=== PATIENT | female | born 1955 | race African-American/Black ===

== ENCOUNTER 2017-01-06 17:42 | Emergency (ER) | payer MEDICARE, OTHER ==
[~2017-01-06] VITALS: Ht 167.6 cm; Wt 100.0 kg
[~2017-01-06 17:42] MED LIST: MIRA33504 PO
[2017-01-06 17:44] VITALS: BP 130/72; PULSE 76; RESP 20; TEMP 98.3; O2SAT 99
--- NOTE | 2017-01-06 17:51 | PD ---
Physical Exam Date Seen by Provider: Jan 06, 2017 Time Seen by Provider: 17:50 Narrative 61 yo female here for evaluation of possible allergic reaction to hair dye. Going on since today. history of same prior. Had good results with benadryl and "a shot". Has swelling to face and scalp. Itchy. No pain. No SOB. Stable and in no acute distress at triage. Vitals are stable. Awaiting bed placement. Data Data Last Documented VS Vital Signs Date Time Temp Pulse Resp B/P Pulse Ox O2 Delivery O2 Flow Rate FiO2 01/06/17 17:44 98.3 76 20 130/72 99 Room Air [facility] Medical Record Reviewed: Yes Supervised Visit with GLORIA: No Dudley Delgadillo Jan 06, 2017 17:51
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
[2017-01-06] MEDS ORDERED: DEXAMETHASONE SOD PHOS 20 MG/5 ML VIAL IM ONE (20:15)
[2017-01-06] MEDS ORDERED: diphenhydrAMINE HCL 50 MG/ML VIAL IM ONE (20:15)
[2017-01-06] MEDS ORDERED: DILT90TA PO (20:21)
[2017-01-06] MEDS ORDERED: LORA-373 PO (20:21)
[2017-01-06] MEDS ORDERED: HYDR-3516 PO (20:21)
[2017-01-06] MEDS ORDERED: NOVOLOGP2 SQ (20:21)
[2017-01-06] MEDS ORDERED: DOXA1TAB36 PO (20:21)
[2017-01-06] MEDS ORDERED: CARV25TA PO (20:21)
[2017-01-06] MEDS ORDERED: LACT10SO PO (20:21)
[2017-01-06 21:28] VITALS: BP 126/70; PULSE 80; RESP 16; O2SAT 98
[2017-01-07] MEDS ORDERED: ZANT300T PO (16:09)
[2017-01-07] MEDS ORDERED: PRED20 PO (16:09)
[2017-01-07] MEDS ORDERED: CETI-1 PO (16:09)
[2017-01-14] MEDS ORDERED: DOXA1TAB36 PO (12:25)
[2017-01-14] MEDS ORDERED: DILT90TA PO (12:25)
[2017-01-14] MEDS ORDERED: FLUT1SPR5 EACH NARE (12:25)
[2017-01-14] MEDS ORDERED: ZANT300T PO (12:25)
[2017-01-14] MEDS ORDERED: EASY1MIS7 SQ (12:25)
[2017-01-14] MEDS ORDERED: CARV25TA PO (12:25)
[2017-01-14] MEDS ORDERED: NOVOLOGP2 SQ (12:25)
[2017-01-14] MEDS ORDERED: CETI-1 PO (12:25)
[2017-01-14] MEDS ORDERED: ALCO1PAD (12:25)
[2017-01-14] MEDS ORDERED: BLOOD GLUCOSE M1 KIT (12:25)
[2017-01-15] MEDS ORDERED: BLOOD GLUCOSE T1 TES (13:13)
[2017-01-15] MEDS ORDERED: LANCETS1 MI1 (13:13)
== END 2017-01-06 21:36 | disposition home or self-care (01) ==
LOC: NEPC 17:42
DX: T65.6X1A Toxic effect of paints and dyes, not elsewhere classified, accidental (unintentional), initial encounter (principal); L23.4 Allergic contact dermatitis due to dyes; K59.00 Constipation, unspecified; M13.80 Other specified arthritis, unspecified site; I50.9 Heart failure, unspecified; E11.9 Type 2 diabetes mellitus without complications; I10 Essential (primary) hypertension; I69.951 Hemiplegia and hemiparesis following unspecified cerebrovascular disease affecting right dominant side; Z79.4 Long term (current) use of insulin
CPT/HCPCS: 96372; 99284; J1100; J1200

== ENCOUNTER 2017-01-07 13:48 | Emergency (ER) | payer MEDICARE, OTHER ==
[~2017-01-07 13:48] MED LIST changes: +CARV25TA PO; +DILT90TA PO; +DOXA1TAB36 PO; +HYDR-3516 PO; +LACT10SO PO; +LORA-373 PO; -MIRA33504 PO; +NOVOLOGP2 SQ
[2017-01-07 13:50] VITALS: BP 149/70; PULSE 59; RESP 16; TEMP 98.5; O2SAT 100
--- NOTE | 2017-01-07 14:30 | PD ---
Physical Exam Time Seen by Provider: 14:28 Narrative 61 y/o female with possible allergic rxn to hair dye, seen here yesterday for this issue but it persists. Vital signs reviewed. Seen at triage desk. Awaiting bed placement. Data Data Last Documented VS Vital Signs Date Time Temp Pulse Resp B/P Pulse Ox O2 Delivery O2 Flow Rate FiO2 01/07/17 13:50 98.5 59 16 149/70 100 Room Air [facility] Medical Record Reviewed: Yes Supervised Visit with GLORIA: Jesús Costa Jan 07, 2017 14:30
[2017-01-07] MEDS ORDERED: DEXAMETHASONE SOD PHOS 4 MG/ML VIAL IM ONE (16:00)
[2017-01-07] MEDS ORDERED: diphenhydrAMINE HCL 50 MG/ML VIAL IM ONE (16:00)
[2017-01-07] MEDS ORDERED: PRED20 PO (16:09)
[2017-01-07] MEDS ORDERED: ZANT300T PO (16:09)
[2017-01-07] MEDS ORDERED: CETI-1 PO (16:09)
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
[2017-01-14] MEDS ORDERED: EASY1MIS7 SQ (12:25)
[2017-01-14] MEDS ORDERED: ALCO1PAD (12:25)
[2017-01-14] MEDS ORDERED: FLUT1SPR5 EACH NARE (12:25)
[2017-01-14] MEDS ORDERED: ZANT300T PO (12:25)
[2017-01-14] MEDS ORDERED: DILT90TA PO (12:25)
[2017-01-14] MEDS ORDERED: NOVOLOGP2 SQ (12:25)
[2017-01-14] MEDS ORDERED: DOXA1TAB36 PO (12:25)
[2017-01-14] MEDS ORDERED: CETI-1 PO (12:25)
[2017-01-14] MEDS ORDERED: CARV25TA PO (12:25)
[2017-01-14] MEDS ORDERED: BLOOD GLUCOSE M1 KIT (12:25)
[2017-01-15] MEDS ORDERED: LANCETS1 MI1 (13:13)
[2017-01-15] MEDS ORDERED: BLOOD GLUCOSE T1 TES (13:13)
== END 2017-01-07 16:31 | disposition home or self-care (01) ==
LOC: NEPD 13:48
DX: T78.40XA Allergy, unspecified, initial encounter (principal); R60.9 Edema, unspecified; E11.9 Type 2 diabetes mellitus without complications; M13.80 Other specified arthritis, unspecified site; I50.9 Heart failure, unspecified; I10 Essential (primary) hypertension; I69.90 Unspecified sequelae of unspecified cerebrovascular disease; Z79.4 Long term (current) use of insulin; Z79.899 Other long term (current) drug therapy
CPT/HCPCS: 96372; 99284; J1100; J1200

== ENCOUNTER 2017-01-22 13:02 | Inpatient (IN) | payer MEDICARE, OTHER ==
[~2017-01-22] VITALS: Ht 167.6 cm; Wt 92.4 kg
[~2017-01-22 13:02] MED LIST changes: +ALCO1PAD; +BLOOD GLUCOSE M1 KIT; +BLOOD GLUCOSE T1 TES; +CETI-1 PO; +EASY1MIS7 SQ; +FLUT1SPR5 EACH NARE; +LANCETS1 MI1; +ZANT300T PO
[2017-01-22 13:05] VITALS: BP 171/77; PULSE 60; RESP 16; TEMP 97.8; O2SAT 97
[2017-01-22 14:00] VITALS: BP 167/74; PULSE 60; RESP 16; TEMP 97.8; O2SAT 97
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
[2017-01-22] MEDS ORDERED: SENN8.6T8 PO (14:12)
[2017-01-22] MEDS ORDERED: NOVOLOGP2 SQ (14:12)
[2017-01-22 14:31] LABS: AUTOMATED NEUTROPHIL # 4.1 TH/MM3 (1.8-7.7); BASOPHIL # 0.1 TH/MM3 (0-0.2); BASOPHIL % 0.7 % (0.0-2.0); EOSINOPHIL # 0.3 TH/MM3 (0-0.4); EOSINOPHIL % 3.4 % (0.0-4.0); HEMATOCRIT 32.8 % (35.0-46.0); HEMO FLAGS DIFF FINAL; LYMPH % 36.4 % (9.0-44.0); LYMPHOCYTE # 2.8 TH/MM3 (1.0-4.8); MEAN CELL VOLUME 87.1 FL (80.0-100.0); MEAN CORPUSCULAR HEMOGLOBIN 28.5 PG (27.0-34.0); MEAN CORPUSCULAR HGB CONC 32.8 % (32.0-36.0); MONO % 7.1 % (0.0-8.0); NEUT % 52.4 % (16.0-70.0); PLATELET COUNT 237 TH/MM3 (150-450); RED BLOOD COUNT 3.77 MIL/MM3 (4.00-5.30); RED CELL DISTRIBUTION WIDTH 13.6 % (11.6-17.2); WHITE BLOOD COUNT 7.8 TH/MM3 (4.0-11.0)
[2017-01-22 14:52] LABS: ALT (GPT) 25 U/L (10-53); ANION GAP 6 MEQ/L (5-15); BICARBONATE 27.2 MEQ/L (21.0-32.0); BLOOD UREA NITROGEN 18 MG/DL (7-18); CHLORIDE 111 MEQ/L (98-107); GLOMERULAR FILTRATION RATE 76 ML/MIN (>89); POTASSIUM 4.2 MEQ/L (3.5-5.1); SODIUM (NA) 144 MEQ/L (136-145)
[2017-01-22 14:59] LABS: ALKALINE PHOSPHATASE 89 U/L (45-117); AST (GOT) 19 U/L (15-37); TOTAL BILIRUBIN ADULT 0.2 MG/DL (0.2-1.0)
[2017-01-22 17:37] LABS: BACTERIA, URINE MANY /hpf; BLOOD, URINE NEG (NEG); COMMENT (UR) CULTURE INDICATED; CULTURE IF INDICATED CULTURE INDICATED; GLUCOSE,URINE NEG (NEG); KETONE, URINE NEG (NEG); MUCUS URINE FEW /lpf (OCC); NITRITE,URINE NEG (NEG); PH, URINE 5.5 (5.0-8.5); SQUAMOUS EPITHELIAL CELL URINE 1 /hpf (0-5); URINE COLOR YELLOW (YELLW/STRAW)
[2017-01-22] MEDS ORDERED: SODIUM CHLORIDE 0.9% FLUSH 10 ML FLUSH IVF PRN (17:45)
[2017-01-22] MEDS ORDERED: CEFEPIME INJ 2,000 MG in SODIUM CHLORIDE 0.9% INJ 100 ML IV ONE (17:45)
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
[2017-01-22] MEDS ORDERED: DEXTROSE 50% IN WATER 50 ML VIAL(D50) IV PRN (18:15)
[2017-01-22] MEDS ORDERED: ONDANSETRON HCL 4 MG/2 ML VIAL IVP PRN (18:15)
[2017-01-22] MEDS ORDERED: RESP: ALBUTEROL 2.5 MG/IPRATROPIUM 0.5 MG NEB (PRN) NEB (18:15)
[2017-01-22] MEDS ORDERED: MAGNESIUM HYDROXIDE SUSP 30 ML CUP PO PRN (18:15)
[2017-01-22] MEDS ORDERED: SODIUM CHLORIDE 0.9% FLUSH 10 ML FLUSH IV FLUSH PRN (18:15)
[2017-01-22] MEDS ORDERED: ACETAMINOPHEN 325 MG TAB PO PRN ×2 (18:15)
[2017-01-22] MEDS ORDERED: GLUCAGON 1 MG/ML VIAL OTHER PRN (18:15)
[2017-01-22] MEDS ORDERED: NALOXONE HCL 0.4 MG/ML AMP IV PRN (18:15)
[2017-01-22] MEDS: SODIUM CHLOR 0.9% 1000 ML INJ 1,000 ML IV SCH (18:44)
[2017-01-22 20:40] VITALS: BP 165/80; PULSE 67; RESP 16; TEMP 97.8; O2SAT 99
[2017-01-22] MEDS: LACTOBACILLUS ACIDOPHILUS TAB PO SCH (20:48)
[2017-01-22] MEDS: CARVEDILOL 12.5 MG TAB PO SCH (20:48)
[2017-01-22] MEDS: INSULIN ASPART SUPPLEMENTAL SCALE SQ SCH (20:49)
[2017-01-22] MEDS: SODIUM CHLORIDE 0.9% FLUSH 10 ML FLUSH IV FLUSH SCH (20:49)
[2017-01-23] VITALS: BP 152/67; PULSE 60; RESP 16; TEMP 98.2; O2SAT 97
[2017-01-23] MEDS: CEFEPIME INJ 2,000 MG in SODIUM CHLORIDE 0.9% INJ 100 ML IV SCH ×3 (01:39→18:33)
[2017-01-23 03:45] VITALS: BP 163/74; PULSE 79; RESP 16; TEMP 98; O2SAT 98
[2017-01-23] MEDS: INSULIN ASPART SUPPLEMENTAL SCALE SQ SCH ×4 (06:21→21:00)
[2017-01-23 07:28] LABS: AUTOMATED NEUTROPHIL # 3.3 TH/MM3 (1.8-7.7); BASOPHIL # 0.1 TH/MM3 (0-0.2); EOSINOPHIL # 0.2 TH/MM3 (0-0.4); EOSINOPHIL % 3.5 % (0.0-4.0); HEMATOCRIT 29.7 % (35.0-46.0); HEMO FLAGS DIFF FINAL; LYMPH % 36.4 % (9.0-44.0); LYMPHOCYTE # 2.4 TH/MM3 (1.0-4.8); MEAN CELL VOLUME 85.5 FL (80.0-100.0); MEAN CORPUSCULAR HEMOGLOBIN 28.8 PG (27.0-34.0); MEAN CORPUSCULAR HGB CONC 33.7 % (32.0-36.0); MONO % 8.2 % (0.0-8.0); NEUT % 50.9 % (16.0-70.0); PLATELET COUNT 198 TH/MM3 (150-450); RED BLOOD COUNT 3.47 MIL/MM3 (4.00-5.30); RED CELL DISTRIBUTION WIDTH 13.2 % (11.6-17.2); WHITE BLOOD COUNT 6.6 TH/MM3 (4.0-11.0)
[2017-01-23 07:31] LABS: ALT (GPT) 21 U/L (10-53); ANION GAP 6 MEQ/L (5-15); AST (GOT) 14 U/L (15-37); BICARBONATE 27.2 MEQ/L (21.0-32.0); BLOOD UREA NITROGEN 18 MG/DL (7-18); CHLORIDE 111 MEQ/L (98-107); GLOMERULAR FILTRATION RATE 89 ML/MIN (>89); POTASSIUM 4.1 MEQ/L (3.5-5.1); SODIUM (NA) 144 MEQ/L (136-145)
[2017-01-23 07:33] LABS: ALKALINE PHOSPHATASE 71 U/L (45-117); HDL CHOLESTEROL 45.7 MG/DL (40.0-60.0); LDL CHOLESTEROL 56 MG/DL (0-99); TOTAL BILIRUBIN ADULT 0.4 MG/DL (0.2-1.0)
[2017-01-23 08:00] VITALS: BP 182/88; PULSE 73; PULSE 75; RESP 20; TEMP 97.5; O2SAT 98
[2017-01-23] MEDS: SODIUM CHLOR 0.9% 1000 ML INJ 1,000 ML IV SCH (08:30)
[2017-01-23] MEDS ORDERED: INFLUENZA VIRUS VACCINE (QUADRIVALENT) 0.5 ML SYR IM ONE (09:00)
--- NOTE | 2017-01-23 09:38 | HHI.PR ---
Subjective Remarks Follow up UTI 01/23/17-patient seen and examined; Afebrile and no acute event overnight Objective Vitals Vital Signs Date Time Temp Pulse Resp B/P Pulse Ox O2 Delivery O2 Flow Rate FiO2 01/23/17 03:45 98.0 79 16 163/74 98 01/23/17 00:00 98.2 60 16 152/67 97 01/22/17 20:40 97.8 67 16 165/80 99 01/22/17 14:00 97.8 60 16 167/74 97 Room Air 01/22/17 13:46 Room Air 01/22/17 13:05 97.8 60 16 171/77 97 Room Air I/O 01/22/17 01/22/17 01/22/17 01/23/17 01/23/17 01/23/17 07:00 15:00 23:00 07:00 15:00 23:00 Intake Total 600 ml 600 ml Balance 600 ml 600 ml Intake Oral 600 ml 600 ml # Voids 2 Result Diagram: 01/23/1712 01/23/17 0612 Objective Remarks GENERAL: NAD SKIN: Warm and dry. HEAD: Normocephalic. EYES: No scleral icterus. No injection or drainage. NECK: Supple, trachea midline. No JVD or lymphadenopathy. CARDIOVASCULAR: Regular rate and rhythm with II/ LADI RESPIRATORY: Breath sounds equal bilaterally. No accessory muscle use. GASTROINTESTINAL: Abdomen soft, non-tender, nondistended. MUSCULOSKELETAL: No cyanosis, or edema. BACK: Nontender without obvious deformity. No CVA tenderness. A/P Problem List: (1) Urinary tract infection ICD Code: N39.0 Status: Acute (2) Hypertension ICD Code: I10 Status: Chronic (3) Diabetes mellitus type 2 ICD Code: 250.00 (4) CVA (cerebral vascular accident) ICD Code: I63.9 Status: Acute Assessment and Plan 61-year-old female with History of Klebsiella UTI Abnormal UA Status post cefepime IV 1 in ED, continue with antibiotics pending urine and blood cultures Diabetes type 2 continue insulin medium sliding scale and fingerstick blood glucose monitoring A1c pending Hypertension continue outpatient medications including Coreg, Cardizem History of CVA PT consult Check lipid profile Anemia of chronic disease H&H stable, continue to monitor DVT prophylaxis: Bilateral SCDs Problem Qualifiers (1) Urinary tract infection: Qualified Code: N30.00 - Acute cystitis without hematuria Jose Russell MD Jan 23, 2017 09:38
[2017-01-23] MEDS: SODIUM CHLORIDE 0.9% FLUSH 10 ML FLUSH IV FLUSH SCH ×2 (09:44→21:00)
[2017-01-23] MEDS: DILTIAZEM HCL 90 MG TAB PO SCH ×3 (09:44→18:33)
[2017-01-23] MEDS: DOXAZOSIN MESYLATE 1 MG TAB PO SCH (09:44)
[2017-01-23] MEDS: LACTOBACILLUS ACIDOPHILUS TAB PO SCH ×2 (09:44→21:02)
[2017-01-23] MEDS: CARVEDILOL 12.5 MG TAB PO SCH ×2 (09:44→21:02)
[2017-01-23 12:00] VITALS: BP 165/81; PULSE 58; RESP 18; TEMP 98.1; O2SAT 98
[2017-01-23 13:19] LABS: HEMOGLOBIN A1a 0.9 %; HEMOGLOBIN A1b 1.7 %; HEMOGLOBIN Ao 84.4 %; HEMOGLOBIN LA1C 1.9 %; HEMOGLOBIN P3 4.1 %
[2017-01-23 16:00] VITALS: BP 149/73; PULSE 56; RESP 18; TEMP 97.5; O2SAT 99
[2017-01-23 20:00] VITALS: BP 136/74; PULSE 68; RESP 20; TEMP 99.7; O2SAT 98
[2017-01-24] MEDS: CEFEPIME INJ 2,000 MG in SODIUM CHLORIDE 0.9% INJ 100 ML IV SCH ×3 (00:30→18:20)
[2017-01-24 00:50] VITALS: BP 118/58; PULSE 63; RESP 18; TEMP 98.7; O2SAT 100
[2017-01-24 04:00] VITALS: BP 143/65; PULSE 65; RESP 18; TEMP 98.6; O2SAT 98
[2017-01-24] MEDS: INSULIN ASPART SUPPLEMENTAL SCALE SQ SCH ×4 (06:28→20:45)
[2017-01-24 08:00] VITALS: BP 161/74; PULSE 67; RESP 20; TEMP 98.5; O2SAT 98
[2017-01-24] MEDS: SODIUM CHLOR 0.9% 1000 ML INJ 1,000 ML IV SCH (08:30)
[2017-01-24] MEDS: SODIUM CHLORIDE 0.9% FLUSH 10 ML FLUSH IV FLUSH SCH ×2 (09:00→21:04)
[2017-01-24] MEDS: CARVEDILOL 12.5 MG TAB PO SCH ×2 (09:39→20:50)
[2017-01-24] MEDS: LACTOBACILLUS ACIDOPHILUS TAB PO SCH ×2 (09:39→20:50)
[2017-01-24] MEDS: DILTIAZEM HCL 90 MG TAB PO SCH ×3 (09:39→18:22)
[2017-01-24] MEDS: DOXAZOSIN MESYLATE 1 MG TAB PO SCH (09:39)
[2017-01-24 12:00] VITALS: BP 143/81; PULSE 65; RESP 20; TEMP 97.8; O2SAT 98
--- NOTE | 2017-01-24 12:55 | HHI.PR ---
Subjective Remarks Follow up UTI 01/23/17-patient seen and examined; Afebrile and no acute event overnight 01/24/17-patient seen and examined, stable, afebrile, denies any symptoms of dysuria. Objective Vitals Vital Signs Date Time Temp Pulse Resp B/P Pulse Ox O2 Delivery O2 Flow Rate FiO2 01/24/17 08:00 98.5 67 20 161/74 98 01/24/17 04:00 98.6 65 18 143/65 98 01/24/17 00:50 98.7 63 18 118/58 100 01/23/17 20:00 99.7 68 20 136/74 98 01/23/17 16:00 97.5 56 18 149/73 99 I/O 01/23/17 01/23/17 01/23/17 01/24/17 01/24/17 01/24/17 06:59 14:59 22:59 06:59 14:59 22:59 Intake Total 600 ml 1320 ml 182 ml 392 ml Output Total 500 ml 700 ml Balance 600 ml 820 ml -518 ml 392 ml Intake Oral 600 ml 1320 ml IV Total 182 ml 392 ml Output Urine Total 500 ml 700 ml # Voids 2 2 # Bowel Movements 0 0 0 Result Diagram: 01/23/1761101/23/17611 Objective Remarks GENERAL: NAD SKIN: Warm and dry. HEAD: Normocephalic. EYES: No scleral icterus. No injection or drainage. NECK: Supple, trachea midline. No JVD or lymphadenopathy. CARDIOVASCULAR: Regular rate and rhythm with II/ LADI RESPIRATORY: Breath sounds equal bilaterally. No accessory muscle use. GASTROINTESTINAL: Abdomen soft, non-tender, nondistended. MUSCULOSKELETAL: No cyanosis, or edema. BACK: Nontender without obvious deformity. No CVA tenderness. A/P Problem List: (1) Urinary tract infection ICD Code: N39.0 Status: Acute (2) Hypertension ICD Code: I10 Status: Chronic (3) Diabetes mellitus type 2 ICD Code: 250.00 (4) CVA (cerebral vascular accident) ICD Code: I63.9 Status: Acute Assessment and Plan 61-year-old female with History of Klebsiella UTI Urine culture positive for klebsiella pneumonia ESBL Status post cefepime IV 1 in ED, continue with antibiotics Consult infectious disease specialist Diabetes type 2 continue insulin medium sliding scale and fingerstick blood glucose monitoring A1c 6.5 Hypertension continue outpatient medications including Coreg, Cardizem History of CVA PT consult LDL 56 Anemia of chronic disease H&H stable, continue to monitor DVT prophylaxis: Bilateral SCDs Problem Qualifiers (1) Urinary tract infection: Qualified Code: N30.00 - Acute cystitis without hematuria Jose Russell MD Jan 24, 2017 12:55
[2017-01-24 16:00] VITALS: BP 120/60; PULSE 64; RESP 20; TEMP 97.7; O2SAT 100
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
[2017-01-24] MEDS ORDERED: ASP: Path resistant to other antimicrobials, culture proven PRN (16:30)
[2017-01-24] MEDS ORDERED: MISCELLANEOUS PHARMACY INFORMATION XX PRN (16:30)
[2017-01-24 19:51] VITALS: BP 141/69; PULSE 63; RESP 18; TEMP 98.4; O2SAT 98
[2017-01-24] MEDS: ERTAPENEM INJ 1,000 MG in SODIUM CHLORIDE 0.9% INJ 100 ML IV SCH (21:05)
--- NOTE | 2017-01-24 22:22 | RADRPT ---
EXAM DATE/TIME: 01/24/2017 21:41 [facility] COMPARISON: No previous studies available for comparison. INDICATIONS : Hydronephrosis. MEDICAL HISTORY : . Congestive heart failure. Hypertension. Cerebrovascular accident. Seizures. Head trauma. C hroinic kidney disease. Arthritis. Osteoporosis. Diabetes. Chronic back pain. MDRO. SURGICAL HISTORY : Tubal ligation. section. PEG tube. ENCOUNTER: Initial ACUITY: 1 day PAIN SCORE: 0/10 LOCATION: Bilateral flank MEASUREMENTS: RIGHT KIDNEY: 10.4 x 4.7 x 4.7 cm LEFT KIDNEY: 10.4 x 5.2 x 5.9 cm FINDINGS: RIGHT KIDNEY: Renal cortex is normal in thickness and echotexture. No hydronephrosis, stone, or mass. LEFT KIDNEY: Renal cortex is normal in thickness and echotexture. No hydronephrosis, stone, or mass. BLADDER: Partially distended. The margins. CONCLUSION: No evidence of hydronephrosis on either side. Skinny Sanchez MD on January 24, 2017 at 22:19 Board Certified Radiologist. This report was verified electronically.
[2017-01-25] VITALS: BP 148/65; PULSE 62; RESP 18; TEMP 97.9; O2SAT 99
[2017-01-25] MEDS: CEFEPIME INJ 2,000 MG in SODIUM CHLORIDE 0.9% INJ 100 ML IV SCH ×2 (00:56→10:00)
[2017-01-25 04:00] VITALS: BP 132/88; PULSE 63; RESP 19; TEMP 97.8; O2SAT 98
[2017-01-25] MEDS: INSULIN ASPART SUPPLEMENTAL SCALE SQ SCH ×3 (05:47→16:00)
[2017-01-25 08:00] VITALS: BP 159/75; PULSE 56; RESP 18; TEMP 97.9; O2SAT 98
[2017-01-25] MEDS ORDERED: INVA1INJ IV (08:08)
[2017-01-25] MEDS ORDERED: SOLU250I IV PUSH (08:08)
[2017-01-25] MEDS ORDERED: EPIN1INJ21 IV PUSH (08:08)
[2017-01-25] MEDS ORDERED: EPIN1INJ21 SQ (08:08)
--- NOTE | 2017-01-25 08:11 | HHI.FF ---
cc: Jessica Joe 3RD MATE Infusion Therapy Location of Infusion Therapy: Home [facility] IV Infusion Order Patient Information Appointment Date: Jan 25, 2017 Patient Weight 92.4 kg Diagnosis: Diagnosis ESBL Kleb pneumo UTI Coded Allergies: Egg Allergy (Verified Allergy, Unknown, 01/22/17) MRI PRECAUTION (Verified Adverse Reaction, Severe, BULLET IN FRONTAL LOBE , 01/22/17) BULLET CONFIRMED BY DR EVANS, 02/10/15 *MDRO Multi-Drug Resistant Organism (Verified Adverse Reaction, Unknown, ) ESBL+ (urine-04/09/16) Administer Medication Ertapenem 1 gram IV q 24 hours Start Treatment: Jan 25, 2017 Stop Treatment: Jan 31, 2017 Additional Information Venous access: Other (Midline) Additional Instructions [x] Peripheral flush and dressing changes per protocol [x] 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 [] May leave port accessed during therapy. [] May leave peripheral site accessed for duration of therapy. [x] If patient has SOB or respiratory distress, check oxygen saturation. If less than 90% or clinical signs of respiratory distress, administer oxygen at 2 L/min. via nasal cannula and notify physician. [x] Anaphylaxis/Reaction orders: * Stop infusion. * Keep IV line open with saline flush. * Notify physician. * Monitor vital signs every 15 minutes until symptoms resolve. * Check Oxygen saturation; Oxygen at 2 L/min. via nasal cannula if less than 90% or clinical signs of respiratory distress. * Administer diphenhydramine (Benadryl) 25 mg IV STAT, (unless patient has received as pre-med). May repeat once, if necessary. * Solu-Cortef 250 mg IVP over 30-60 seconds, use 100 mg vials for each dissolution. * Epinephrine (1mg/1 ml) 0.3 mg subcutaneously or IVP now with any signs of respiratory distress. * Check with physician for new additional pre-med orders if patient is re- challenged or re-treated. [x] May remove PICC line when treatment complete, after confirming with Physician. [x] If the patient is admitted to the hospital, the ED, or transferred via [facility] , complete transfer form including medication reconciliation order sheet. Laboratory Tests Additional Information After completion of infusions if patient continues to do well ok to remove Midline or else call Paz Barrera MD Jan 25, 2017 08:11
[2017-01-25] MEDS: SODIUM CHLORIDE 0.9% FLUSH 10 ML FLUSH IV FLUSH SCH (09:00)
[2017-01-25] MEDS: DILTIAZEM HCL 90 MG TAB PO SCH ×3 (10:14→18:00)
[2017-01-25] MEDS: SODIUM CHLOR 0.9% 1000 ML INJ 1,000 ML IV SCH (10:14)
[2017-01-25] MEDS: LACTOBACILLUS ACIDOPHILUS TAB PO SCH (10:15)
[2017-01-25] MEDS: CARVEDILOL 12.5 MG TAB PO SCH (10:15)
[2017-01-25] MEDS: DOXAZOSIN MESYLATE 1 MG TAB PO SCH (10:15)
[2017-01-25 12:00] VITALS: BP 162/71; PULSE 62; RESP 18; TEMP 97.8; O2SAT 98
--- NOTE | 2017-01-25 12:23 | HHI.FF ---
Face to Face Verification Diagnosis: (1) UTI (urinary tract infection) Physical Therapy Order: Evaluate and Treat Home Health Nursing Order: Signs/symptoms of disease process I have seen patient Bina Mcfadden on 01/25/17. My clinical findings support the need for the requested home health care services because: Deconditioned w/ increased weakness I certify that my clinical findings support that this patient is homebound because: Poor cardiac reserve Jose Russell MD Jan 25, 2017 12:23
--- NOTE | 2017-01-25 12:26 | HHI.PR ---
Subjective Remarks Follow up UTI 01/23/17-patient seen and examined; Afebrile and no acute event overnight 01/24/17-patient seen and examined, stable, afebrile, denies any symptoms of dysuria. 01/25/17-patient seen and examined, afebrile and no acute event overnight. Stable. Tolerated by mouth without any competition nausea and vomiting Objective Vitals Vital Signs Date Time Temp Pulse Resp B/P Pulse Ox O2 Delivery O2 Flow Rate FiO2 01/25/17 04:00 97.8 63 19 132/88 98 01/25/17 00:00 97.9 62 18 148/65 99 01/24/17 19:51 98.4 63 18 141/69 98 01/24/17 16:00 97.7 64 20 120/60 100 I/O 01/24/17 01/24/17 01/24/17 01/25/17 01/25/17 01/25/17 07:00 15:00 23:00 07:00 15:00 23:00 Intake Total 392 ml 240 ml 435 ml 771 ml Output Total 200 ml 200 ml Balance 392 ml 240 ml 235 ml 571 ml Intake Oral 240 ml 480 ml IV Total 392 ml 435 ml 291 ml Output Urine Total 200 ml 200 ml # Voids 2 3 # Bowel Movements 0 Result Diagram: 01/23/17 0612 01/23/17 0612 Imaging Last Impressions Renal Ultrasound 01/24/17 0000 Signed Impressions: Service Date/Time: Tuesday, January 24, 2017 21:41 - CONCLUSION: No evidence of hydronephrosis on either side. Skinny Sanchez MD Objective Remarks GENERAL: NAD SKIN: Warm and dry. HEAD: Normocephalic. EYES: No scleral icterus. No injection or drainage. NECK: Supple, trachea midline. No JVD or lymphadenopathy. CARDIOVASCULAR: Regular rate and rhythm with II/ LADI RESPIRATORY: Breath sounds equal bilaterally. No accessory muscle use. GASTROINTESTINAL: Abdomen soft, non-tender, nondistended. MUSCULOSKELETAL: No cyanosis, or edema. RUE weakness BACK: Nontender without obvious deformity. No CVA tenderness. Procedures none A/P Problem List: (1) Urinary tract infection ICD Code: N39.0 Status: Acute (2) Hypertension ICD Code: I10 Status: Chronic (3) Diabetes mellitus type 2 ICD Code: 250.00 (4) CVA (cerebral vascular accident) ICD Code: I63.9 Status: Acute Assessment and Plan 61-year-old female with History of Klebsiella UTI Urine culture positive for klebsiella pneumonia ESBL Status post cefepime IV 1 in ED, continue with antibiotics Consult infectious disease specialist Diabetes type 2 continue insulin medium sliding scale and fingerstick blood glucose monitoring A1c 6.5 Hypertension continue outpatient medications including Coreg, Cardizem History of CVA PT consult LDL 56 Anemia of chronic disease H&H stable, continue to monitor DVT prophylaxis: Bilateral SCDs Problem Qualifiers (1) Urinary tract infection: Qualified Code: N30.00 - Acute cystitis without hematuria Jose Russell MD Jan 25, 2017 12:26
--- NOTE | 2017-01-25 12:29 | HHI.DS ---
Discharge Summary Admission Date Jan 22, 2017 at 18:15 Discharge Date: Jan 25, 2017 Admitting Diagnosis Klebsiella pneumoniae UTI (1) Urinary tract infection ICD Code: N39.0 (2) Hypertension ICD Code: I10 (3) Diabetes mellitus type 2 ICD Code: 250.00 (4) CVA (cerebral vascular accident) ICD Code: I63.9 Procedures none Brief History - From Admission 61 year-old -[place] female with a history of CVA 2, diabetes type 2 who has spent the past year in rehabilitation facilities was sent to the ED by her PCP for evaluation of abnormal labs including abnormal UA with finding of Klebsiella pneumonia and only sensitive to cefepime, gentamicin, imipenem and tobramycin. Patient states, after she was released 3 weeks ago from SNF, she had febrile episode associated with increased urinary urgency and frequency associated with foul smell urine about a week ago. Her PCP order a few labs and patient's had abnormal UA 01/20/17. She denies any chest pain or shortness of breath CBC/BMP: 01/23/17 0612 01/23/17 0612 Significant Findings Laboratory Tests Test 01/22/17 01/22/17 01/23/17 14:15 17:10 06:12 Chloride Level 111 MEQ/L 111 MEQ/L (98-107) (98-107) Estimat Glomerular Filtration 76 ML/MIN (>89) Rate Random Glucose 128 MG/DL (74-106) Albumin 3.2 GM/DL 2.8 GM/DL (3.4-5.0) (3.4-5.0) Red Blood Count 3.77 MIL/MM3 3.47 MIL/MM3 (4.00-5.30) (4.00-5.30) Hemoglobin 10.8 GM/DL 10.0 GM/DL (11.6-15.3) (11.6-15.3) Hematocrit 32.8 % 29.7 % (35.0-46.0) (35.0-46.0) Urine Turbidity HAZY (CLEAR) Urine Leukocyte Esterase LARGE (NEG) Urine WBC 44 /hpf (0-5) Urine WBC Clumps RARE (NONE) Urine Bacteria MANY /hpf (NONE) Urine Mucus FEW /lpf (OCC) Monocytes (%) (Auto) 8.2 % (0.0-8.0) Hemoglobin A1c 6.5 % (4.3-6.0) Calcium Level 8.4 MG/DL (8.5-10.1) Aspartate Amino Transf 14 U/L (15-37) (AST/SGOT) Total Protein 6.3 GM/DL (6.4-8.2) Cholesterol Level 114 MG/DL (120-200) Imaging Last Impressions Renal Ultrasound 01/24/17 0000 Signed Impressions: Service Date/Time: Tuesday, January 24, 2017 21:41 - CONCLUSION: No evidence of hydronephrosis on either side. Skinny Sanchez MD PE at Discharge GENERAL: NAD SKIN: Warm and dry. HEAD: Normocephalic. EYES: No scleral icterus. No injection or drainage. NECK: Supple, trachea midline. No JVD or lymphadenopathy. CARDIOVASCULAR: Regular rate and rhythm with II/ LADI RESPIRATORY: Breath sounds equal bilaterally. No accessory muscle use. GASTROINTESTINAL: Abdomen soft, non-tender, nondistended. MUSCULOSKELETAL: No cyanosis, or edema. RUE weakness BACK: Nontender without obvious deformity. No CVA tenderness. Hospital Course Patient admitted secondary to UTI for which was initially started on IV cefepime however secondary to positive culture of Klebsiella pneumonia ESBL, infectious disease specialist was consulted and patient was treated to [facility]. PT was consulted. Patient was continued on her treatment for other chronic medical conditions. DVT and GI prophylaxis were provided. Prior to discharge him a patient's condition improved and vital remained stable. Pt Condition on Discharge: Stable Discharge Disposition: Disch w/ Home Health Serv Discharge Time: > 30 minutes Discharge Instructions DIET: Follow Instructions for: Diabetic Diet Activities you can perform: Regular-No Restrictions Follow up Referrals: PCP Follow-up - 1 Week New Medications: Epinephrine Inj (Epinephrine Inj) 1 Mg/Ml Inj 0.3 MG IV PUSH ONCE PRN ALLERGIC REACTION #1 VIAL Epinephrine Inj (Epinephrine Inj) 1 Mg/Ml Inj 0.3 MG SQ ONCE Give with any signs of respiratory distress. PRN ALLERGIC REACTION #1 VIAL Ertapenem Inj (Invanz Inj) 1 Gm Addvial 1 GM IV Q24H ADMINISTER IN 100ML NS ESBL UTI Days 7 Ref 0 INJECTION Hydrocortisone Inj (Solu-Cortef Inj) 250 Mg Inj 250 MG IV PUSH ONCE Give over 30-60 seconds. PRN ALLERGIC REACTION #1 Ref 0 VIAL Continued Medications: Carvedilol (Carvedilol) 25 Mg Tab 25 MG PO BID #180 Ref 0 TAB Diltiazem (Diltiazem) 90 Mg Tab 90 MG PO TID Angina #270 Ref 0 TAB Doxazosin (Doxazosin) 1 Mg Tab 1 MG PO DAILY #90 Ref 0 TAB Fluticasone Nasal [employer] (Flonase Nasal [employer]) 50 Mcg/Act [employer] 50 MCG EACH NARE BID Allergies #1 Ref 5 BOTTLE Insulin Aspart Inj (Novolog Inj) 1,000 Unit/10 Ml Vial 2-12 UNITS SQ ACHS Max dose at bedtime ( ) units; sugars less than 70,(0) units ; sugars 150-199,(2) units; sugars 200-249,(4) units; sugars 250-299,(7) units; sugars 300-349,(10) units; sugars greater than 349,(12)units Blood Sugar Management #10 Ref 0 ML Ranitidine (Zantac) 300 Mg Tab 300 MG PO DAILY #90 Ref 0 TAB Discontinued Medications: Sennosides-Docusate Sodium (Senna S) 8.6-50 Mg Tab 1 TAB PO EVERY OTHER DAY Jose Russell MD Jan 25, 2017 12:29
[2017-01-25] MEDS ORDERED: WALKER/FOLDING1 MIS (15:21)
[2017-01-25 16:00] VITALS: BP 152/67; PULSE 58; RESP 16; TEMP 97.9; O2SAT 98
[2017-01-25] MEDS: ERTAPENEM INJ 1,000 MG in SODIUM CHLORIDE 0.9% INJ 100 ML IV SCH (17:00)
== END 2017-01-25 18:10 | disposition home health service (06) | DRG 690 ==
LOC: NEPD 13:02 → NEDA 17:50 → OBSVTOIN 18:15 → N04A 20:12
PROVIDERS: ADMIT Hospitalist; ATTEND Hospitalist
DX: N39.0 Urinary tract infection, site not specified (principal); I50.30 Unspecified diastolic (congestive) heart failure; E11.22 Type 2 diabetes mellitus with diabetic chronic kidney disease; I69.351 Hemiplegia and hemiparesis following cerebral infarction affecting right dominant side; E11.40 Type 2 diabetes mellitus with diabetic neuropathy, unspecified; Z79.4 Long term (current) use of insulin; B96.1 Klebsiella pneumoniae [K. pneumoniae] as the cause of diseases classified elsewhere; Z16.12 Extended spectrum beta lactamase (ESBL) resistance; F41.9 Anxiety disorder, unspecified; G89.29 Other chronic pain; M54.9 Dorsalgia, unspecified; I12.9 Hypertensive chronic kidney disease with stage 1 through stage 4 chronic kidney disease, or unspecified chronic kidney disease; N18.9 Chronic kidney disease, unspecified; M19.90 Unspecified osteoarthritis, unspecified site; D63.8 Anemia in other chronic diseases classified elsewhere
CPT/HCPCS: 36569; 76775; 76937; 80053; 80061; 81001; 82948; 83036; 83605; 85025; 87040; 87077; 87086; 87186; J0692; J1335; J1815; J7030

== ENCOUNTER 2017-01-28 18:15 | Emergency (ER) | payer MEDICARE, OTHER ==
[~2017-01-28] VITALS: Ht 167.6 cm; Wt 100.0 kg
[~2017-01-28 18:15] MED LIST changes: -CETI-1 PO; +EPIN1INJ21 IV PUSH; +EPIN1INJ21 SQ; -HYDR-3516 PO; +INVA1INJ IV; -LACT10SO PO; -LORA-373 PO; +SOLU250I IV PUSH; +WALKER/FOLDING1 MIS
[2017-01-28 18:17] VITALS: BP 205/100; PULSE 68; RESP 20; TEMP 98.2; O2SAT 99
[2017-01-28 22:44] VITALS: BP 195/75; PULSE 60; RESP 16; O2SAT 100
[2017-01-28] MEDS ORDERED: ALTEPLASE RECOMBINANT 2 MG VIAL INTRACATH ONE (23:15)
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
[2017-01-28] MEDS ORDERED: ERTAPENEM 1,000 MG/NS 100 ML IV SCH ×2 (23:45)
[2017-01-29] MEDS ORDERED: ACETAMINOPHEN 325 MG TAB PO ONE (01:00)
[2017-01-29 02:17] VITALS: BP 165/77
[2017-02-04] MEDS ORDERED: HYDR12.57 PO (11:25)
== END 2017-01-29 02:16 | disposition home or self-care (01) ==
LOC: NEPD 18:15
DX: T82.898A Other specified complication of vascular prosthetic devices, implants and grafts, initial encounter (principal); M13.88 Other specified arthritis, other site; I10 Essential (primary) hypertension; I50.9 Heart failure, unspecified; E11.9 Type 2 diabetes mellitus without complications; R56.9 Unspecified convulsions; Z79.4 Long term (current) use of insulin; Z79.899 Other long term (current) drug therapy; Z86.73 Personal history of transient ischemic attack (TIA), and cerebral infarction without residual deficits
CPT/HCPCS: 96374; 99284; J2997

== ENCOUNTER 2017-01-29 14:10 | Day surgery (SDC) | payer MEDICARE, OTHER ==
[2017-01-29 14:39] VITALS: BP 132/75; PULSE 61; RESP 18; TEMP 97.6; O2SAT 100
--- NOTE | 2017-01-29 16:56 | RADRPT ---
EXAM DATE/TIME: 01/29/2017 16:24 [place] COMPARISON: No previous studies available for comparison. INDICATIONS : Patient with UTI in need of PICC line placement for antibiotics. MEDICAL HISTORY : CVA, Seizures, HTN, CHF, CKD, Osteoarthritis SURGICAL HISTORY : PEG tube placement ENCOUNTER: Initial ACUITY: 2 months PAIN SCORE: 0/10 FLUORO TIME: 0.9 minutes IMAGE SERIES: 1 ACCESS: Left basilic vein DEVICE(S): 1.) 4 Malag[place] single lumen 44 cm Xcela Power PICC PROCEDURE : 1. Ultrasound guidance for venous catheterization. 2. Fluoroscopic guidance. 3. Ultrasound & fluoroscopic guided central venous Power PICC line placement. The risks, benefits and alternatives to the procedure were explained and verbal and written consent w as obtained. The site was prepped in sterile fashion. Full sterile technique was used, including ca p, mask, sterile gloves and gown and a large sterile sheet. Hand hygiene and 2% chlorhexidine prep w as utilized per protocol for cutaneous antisepsis with appropriate dry time for site. The skin and s ubcutaneous tissues were infiltrated with local anesthetic solution. Under direct ultrasound guidance, a suitable vein was accessed and a measuring guidewire was introduc ed and positioned in the central venous system. The ultrasound images depicting access guidance were saved and stored to PACS for permanent record. A Power Injectable PICC line was cut to prescribed length and introduced, positioned with tip at the cavoatrial junction level. The line was flushed and secured per protocol. CONCLUSION: 1. Uncomplicated central venous Power PICC line placement. 2. The PICC line can be used immediately. Eliseo Vazquez MD on January 29, 2017 at 16:55 Board Certified Radiologist. This report was verified electronically.
[2017-02-04] MEDS ORDERED: HYDR12.57 PO (11:25)
== END 2017-01-29 16:55 | disposition home or self-care (01) ==
LOC: HROP 14:10 → HRIP 14:11 → HROP 16:55
PROVIDERS: ATTEND Emergency Medicine Emergency Medical Services
DX: N39.0 Urinary tract infection, site not specified (principal); R56.9 Unspecified convulsions; I13.0 Hypertensive heart and chronic kidney disease with heart failure and stage 1 through stage 4 chronic kidney disease, or unspecified chronic kidney disease; N18.9 Chronic kidney disease, unspecified; I50.9 Heart failure, unspecified; M19.90 Unspecified osteoarthritis, unspecified site; Z86.73 Personal history of transient ischemic attack (TIA), and cerebral infarction without residual deficits
CPT/HCPCS: 36569; 76937; 77001; C1751; J1642

== ENCOUNTER 2017-03-05 14:09 | Emergency (ER) | payer MEDICARE, OTHER ==
[~2017-03-05] VITALS: Ht 167.6 cm; Wt 100.0 kg
[~2017-03-05 14:09] MED LIST changes: +HYDR12.57 PO
[2017-03-05] MEDS ORDERED: IOHEXOL 350 MG/ML 10 ML VIAL (for RAD DIAG) IV PUSH ONE ×2 (14:10→16:40)
[2017-03-05 14:21] VITALS: BP 170/76; PULSE 73; RESP 15; TEMP 97.5; O2SAT 99
[2017-03-05] MEDS ORDERED: ONDANSETRON HCL 4 MG/2 ML VIAL IVP ONE (14:30)
[2017-03-05] MEDS ORDERED: SODIUM CHLORIDE 0.9% FLUSH 10 ML FLUSH IV FLUSH PRN (14:30)
[2017-03-05] MEDS ORDERED: MORPHINE SULFATE 4 MG/ML INJ IV PUSH ONE (14:30)
[2017-03-05] MEDS ORDERED: SODIUM CHLORID 0.9% 500 ML INJ 500 ML IV ONE (14:30)
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
[2017-03-05 15:04] LABS: AUTOMATED NEUTROPHIL # 3.2 TH/MM3 (1.8-7.7); BASOPHIL # 0.1 TH/MM3 (0-0.2); BASOPHIL % 0.9 % (0.0-2.0); EOSINOPHIL # 0.2 TH/MM3 (0-0.4); EOSINOPHIL % 2.2 % (0.0-4.0); HEMATOCRIT 34.4 % (35.0-46.0); HEMO FLAGS DIFF FINAL; LYMPH % 45.2 % (9.0-44.0); LYMPHOCYTE # 3.1 TH/MM3 (1.0-4.8); MEAN CELL VOLUME 85.2 FL (80.0-100.0); MEAN CORPUSCULAR HEMOGLOBIN 28.8 PG (27.0-34.0); MEAN CORPUSCULAR HGB CONC 33.8 % (32.0-36.0); MONO % 5.2 % (0.0-8.0); NEUT % 46.5 % (16.0-70.0); PLATELET COUNT 234 TH/MM3 (150-450); RED BLOOD COUNT 4.04 MIL/MM3 (4.00-5.30); RED CELL DISTRIBUTION WIDTH 13.6 % (11.6-17.2); WHITE BLOOD COUNT 6.9 TH/MM3 (4.0-11.0)
[2017-03-05 15:15] LABS: APTT (PATIENT) 22.8 SEC (24.3-30.1); PROTHROMBIN TIME - PATIENT 11.5 SEC (9.8-11.6)
--- NOTE | 2017-03-05 15:42 | RADRPT ---
EXAM DATE/TIME: 03/05/2017 14:55 [facility] COMPARISON: CHEST SINGLE AP, February 08, 2015, 15:07. INDICATIONS : Chest pain. MEDICAL HISTORY : None. CVA, Seizures, HTN, CHF, CKD, Osteoarthritis SURGICAL HISTORY : PEG tube ENCOUNTER: Initial ACUITY: 1 day PAIN SCORE: 6/10 LOCATION: Bilateral chest FINDINGS: The lungs are clear without infiltrate, nodule, or mass. There is no appreciable pleural effusion fo r technique. Heart and mediastinum are unremarkable. CONCLUSION: No acute cardiopulmonary disease. Imtiaz Morales MD on March 05, 2017 at 15:34 Board Certified Radiologist. This report was verified electronically.
[2017-03-05 16:00] LABS: ALKALINE PHOSPHATASE 92 U/L (45-117); ALT (GPT) 24 U/L (10-53); ANION GAP 6 MEQ/L (5-15); AST (GOT) 27 U/L (15-37); BICARBONATE 26.3 MEQ/L (21.0-32.0); BLOOD UREA NITROGEN 17 MG/DL (7-18); CHLORIDE 111 MEQ/L (98-107); CREATINE KINASE 106 U/L (26-192); GLOMERULAR FILTRATION RATE 73 ML/MIN (>89); SODIUM (NA) 143 MEQ/L (136-145); TOTAL BILIRUBIN ADULT 0.4 MG/DL (0.2-1.0)
[2017-03-05 16:04] LABS: POTASSIUM 4.5 MEQ/L (3.5-5.1)
[2017-03-05 16:17] LABS: BLOOD, URINE NEG (NEG); COMMENT (UR) CULT NOT INDICATED; CULTURE IF INDICATED CULT NOT INDICATED; GLUCOSE,URINE NEG (NEG); KETONE, URINE NEG (NEG); MUCUS URINE FEW /lpf (OCC); NITRITE,URINE NEG (NEG); PH, URINE 5.5 (5.0-8.5); SQUAMOUS EPITHELIAL CELL URINE <1 /hpf (0-5); URINE COLOR YELLOW (YELLW/STRAW)
--- NOTE | 2017-03-05 17:27 | RADRPT ---
EXAM DATE/TIME: 03/05/2017 16:24 [facility] COMPARISON: CT ABDOMEN & PELVIS W/O CONTRAST, April 10, 2016, 11:38. INDICATIONS : Right lower quadrant. IV CONTRAST: 70 cc Omnipaque 350 (iohexol) IV ORAL CONTRAST: No oral contrast ingested. RADIATION DOSE: 9.96 CTDIvol (mGy) MEDICAL HISTORY : Cardiovascular disease. Hypertension. Stroke. SURGICAL HISTORY : Tubal ligation. ENCOUNTER: Initial ACUITY: 1 day PAIN SCALE: 4/10 LOCATION: Right abdomen. TECHNIQUE: Volumetric scanning of the abdomen and pelvis was performed. Using automated exposure control and adjustment of the mA and/or kV according to patient size, radiation dose was kept as low as reasonably achievable to obtain optimal diagnostic quality images. DICOM format image data is av ailable electronically for review and comparison. FINDINGS: CT Abdomen: The liver, spleen, pancreas, kidneys, adrenals are unremarkable. There is no evidence for any appreciable pathological adenopathy, free fluid, or bowel obstruction. The gallbladder demonstr ates multiple stones without gallbladder wall thickening, or pericholecystic fluid. CT pelvis: Large approximate 5.5 cm calcified fibroid has not changed. The appendix appears intact wi thout definite signs of appendicitis. CONCLUSION: Cholelithiasis and large calcified fibroid Imtiaz Morales MD on March 05, 2017 at 17:21 Board Certified Radiologist. This report was verified electronically.
[2017-03-05 18:11] VITALS: BP 170/81; PULSE 55; RESP 14; O2SAT 96
--- NOTE | 2017-03-06 13:30 | EKG ---
Date Performed: 03/05/2017 Time Performed: 16:12:20 PTAGE: 61 years EKG: SINUS BRADYCARDIA BORDERLINE ECG PREVIOUS TRACING : 02/08/2015 15.27 Since prior tracing, sinus rate has slowed. DOCTOR: Amilcar Velez Interpretating Date/Time 03/06/2017 13:29:22
[2017-04-12] MEDS ORDERED: NOVOLOGP2 SQ (10:07)
[2017-04-12] MEDS ORDERED: CARV25TA PO (10:07)
[2017-04-16] MEDS ORDERED: WHEEMIS3 ×2 (15:05→15:06)
[2017-04-16] MEDS ORDERED: ZANT300T PO (15:48)
== END 2017-03-05 18:49 | disposition home or self-care (01) ==
LOC: NEPE 14:09
DX: D25.9 Leiomyoma of uterus, unspecified (principal); K59.00 Constipation, unspecified
CPT/HCPCS: 71010; 74177; 80053; 81001; 82550; 83690; 84484; 85025; 85610; 85730; 93005; 96361; 96374; 96375; 99285; J2270; J2405; J7040; Q9967

== ENCOUNTER 2017-03-16 13:55 | Emergency (ER) | payer MEDICARE ==
[~2017-03-16] VITALS: Ht 167.6 cm; Wt 95.0 kg
[~2017-03-16 13:55] MED LIST changes: -ALCO1PAD; -BLOOD GLUCOSE M1 KIT; -BLOOD GLUCOSE T1 TES; -EASY1MIS7 SQ; -EPIN1INJ21 SQ; -HYDR12.57 PO; -INVA1INJ IV; -LANCETS1 MI1; -SOLU250I IV PUSH; -WALKER/FOLDING1 MIS
[2017-03-16] MEDS ORDERED: IOHEXOL 350 MG/ML 10 ML VIAL (for RAD DIAG) IVCONTRAST ONE (13:56)
[2017-03-16 14:10] VITALS: BP 188/86; PULSE 63; RESP 16; TEMP 97.6; O2SAT 98
[2017-03-16] MEDS ORDERED: SODIUM CHLORIDE 0.9% FLUSH 10 ML FLUSH IV FLUSH PRN (14:15)
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
[2017-03-16 15:50] LABS: AUTOMATED NEUTROPHIL # 2.6 TH/MM3 (1.8-7.7); BASOPHIL % 0.7 % (0.0-2.0); EOSINOPHIL # 0.1 TH/MM3 (0-0.4); EOSINOPHIL % 2.4 % (0.0-4.0); HEMATOCRIT 37.6 % (35.0-46.0); HEMO FLAGS DIFF FINAL; LYMPH % 46.2 % (9.0-44.0); LYMPHOCYTE # 2.8 TH/MM3 (1.0-4.8); MEAN CORPUSCULAR HEMOGLOBIN 27.7 PG (27.0-34.0); MEAN CORPUSCULAR HGB CONC 32.6 % (32.0-36.0); MONO % 8.1 % (0.0-8.0); NEUT % 42.6 % (16.0-70.0); PLATELET COUNT 248 TH/MM3 (150-450); RED BLOOD COUNT 4.42 MIL/MM3 (4.00-5.30); RED CELL DISTRIBUTION WIDTH 13.4 % (11.6-17.2); WHITE BLOOD COUNT 6.1 TH/MM3 (4.0-11.0)
[2017-03-16 15:58] LABS: ALKALINE PHOSPHATASE 95 U/L (45-117); TOTAL BILIRUBIN ADULT 0.4 MG/DL (0.2-1.0)
[2017-03-16 16:11] LABS: ALT (GPT) 19 U/L (10-53); ANION GAP 5 MEQ/L (5-15); AST (GOT) 28 U/L (15-37); BICARBONATE 26.2 MEQ/L (21.0-32.0); BLOOD UREA NITROGEN 20 MG/DL (7-18); CHLORIDE 110 MEQ/L (98-107); GLOMERULAR FILTRATION RATE 66 ML/MIN (>89); SODIUM (NA) 141 MEQ/L (136-145)
[2017-03-16 16:17] LABS: POTASSIUM 4.9 MEQ/L (3.5-5.1)
[2017-03-16 17:30] LABS: BACTERIA, URINE MOD /hpf; BLOOD, URINE NEG (NEG); COMMENT (UR) CULTURE INDICATED; CULTURE IF INDICATED CULTURE INDICATED; GLUCOSE,URINE NEG (NEG); KETONE, URINE NEG (NEG); NITRITE,URINE NEG (NEG); SQUAMOUS EPITHELIAL CELL URINE 1 /hpf (0-5); URINE COLOR YELLOW (YELLW/STRAW)
--- NOTE | 2017-03-16 18:20 | RADRPT ---
EXAM DATE/TIME: 03/16/2017 17:25 [facility] COMPARISON: CT ABDOMEN & PELVIS W CONTRAST, March 05, 2017, 16:24. INDICATIONS : Abdomen pain for one week. IV CONTRAST: 93 cc Omnipaque 350 (iohexol) IV ORAL CONTRAST: No oral contrast ingested. RADIATION DOSE: 10.35 CTDIvol (mGy) MEDICAL HISTORY : Congestive heart failure. Hypertension. Seizures.Diabetes SURGICAL HISTORY : Tubal ligation. ENCOUNTER: Initial ACUITY: 1 week PAIN SCALE: 1/10 LOCATION: Abdomen TECHNIQUE: Volumetric scanning of the abdomen and pelvis was performed. Using automated exposure control and ad justment of the mA and/or kV according to patient size, radiation dose was kept as low as reasonably achievable to obtain optimal diagnostic quality images. DICOM format image data is available electro nically for review and comparison. FINDINGS: LOWER LUNGS: The visualized lower lungs are clear. LIVER: Homogeneous density without lesion. There is no dilation of the biliary tree. Cholelithiasis is agai n noted. SPLEEN: Normal size without lesion. PANCREAS: Within normal limits. KIDNEYS: Normal in size and shape. Tiny focal cortical scar is noted within the lower pole the left kidney. T here is no mass, stone or hydronephrosis. ADRENAL GLANDS: Within normal limits. VASCULAR: There is no aortic aneurysm. BOWEL/MESENTERY: The stomach, small bowel, and colon demonstrate no acute abnormality. There is no free intraperitone al air or fluid. ABDOMINAL WALL: Within normal limits. RETROPERITONEUM: There is no lymphadenopathy. BLADDER: No wall thickening or mass. REPRODUCTIVE: There is a stable large calcified uterine fibroid measuring 5.5 cm. INGUINAL: There is no lymphadenopathy or hernia. MUSCULOSKELETAL: Within normal limits for patient age. CONCLUSION: 1. Cholelithiasis. 2. Stable large calcified fibroid. 3. Stable focal cortical scar within the lower pole of the left kidney. 4. No acute intra-abdominal abnormality. Rudy Mtz MD on March 16, 2017 at 18:14 Board Certified Radiologist. This report was verified electronically.
[2017-03-16] MEDS ORDERED: BACT800T5 PO (18:26)
[2017-03-16] MEDS ORDERED: FLUCONAZOLE 100 MG TAB PO ONE (18:30)
[2017-03-16] MEDS ORDERED: SULFAMETHOXAZOLE-TRIMETHOPRIM DS 800-160 MG TAB PO ONE (18:30)
--- NOTE | 2017-03-16 18:55 | HHI.FF ---
Face to Face Verification Diagnosis: (1) UTI (urinary tract infection) (2) Fibroid, uterine Physical Therapy Order: Evaluate and Treat Lens Edge Grinder Machine Order: To Evaluate: Living conditions/environment, Support services Order: To Provide: Long range planning I have seen patient Bina Mcfadden on 03/16/17. My clinical findings support the need for the requested home health care services because: Limited ability to care for self Need for psychosocial assistance I certify that my clinical findings support that this patient is homebound because: Unsteady gait/balance Need for psychosocial assistance Alma Koo MD Mar 16, 2017 18:55
[2017-03-16 19:52] VITALS: BP 169/104; PULSE 61; RESP 18; O2SAT 99
[2017-04-12] MEDS ORDERED: NOVOLOGP2 SQ (10:07)
[2017-04-12] MEDS ORDERED: CARV25TA PO (10:07)
[2017-04-16] MEDS ORDERED: WHEEMIS3 ×2 (15:05→15:06)
[2017-04-16] MEDS ORDERED: ZANT300T PO (15:48)
== END 2017-03-16 21:48 | disposition home or self-care (01) ==
LOC: NEPC 13:55
DX: N39.0 Urinary tract infection, site not specified (principal); I69.320 Aphasia following cerebral infarction; I11.0 Hypertensive heart disease with heart failure; E11.9 Type 2 diabetes mellitus without complications; K21.9 Gastro-esophageal reflux disease without esophagitis
CPT/HCPCS: 74177; 80053; 81001; 83690; 85025; 87077; 87086; 87186; 99285; Q9967

== ENCOUNTER 2017-03-20 22:34 | Emergency (ER) | payer MEDICARE ==
[~2017-03-20] VITALS: Ht 167.6 cm; Wt 93.0 kg
[~2017-03-20 22:34] MED LIST changes: +BACT800T5 PO
[2017-03-20 22:40] VITALS: BP 115/59; PULSE 51; RESP 14; TEMP 98.5; O2SAT 100
[2017-03-21] MEDS ORDERED: SODIUM CHLORIDE 0.9% FLUSH 10 ML FLUSH IVF PRN (00:45)
[2017-03-21] MEDS ORDERED: DOCUSATE SODIUM 50 MG/SENNA 8.6 MG TAB PO ONE (00:45)
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
[2017-03-21 01:11] LABS: AUTOMATED NEUTROPHIL # 4.6 TH/MM3 (1.8-7.7); BASOPHIL # 0.1 TH/MM3 (0-0.2); EOSINOPHIL # 0.1 TH/MM3 (0-0.4); EOSINOPHIL % 1.4 % (0.0-4.0); HEMATOCRIT 35.3 % (35.0-46.0); HEMO FLAGS DIFF FINAL; LYMPH % 34.5 % (9.0-44.0); LYMPHOCYTE # 2.8 TH/MM3 (1.0-4.8); MEAN CELL VOLUME 85.6 FL (80.0-100.0); MEAN CORPUSCULAR HEMOGLOBIN 28.1 PG (27.0-34.0); MEAN CORPUSCULAR HGB CONC 32.9 % (32.0-36.0); MONO % 6.5 % (0.0-8.0); NEUT % 56.6 % (16.0-70.0); PLATELET COUNT 234 TH/MM3 (150-450); RED BLOOD COUNT 4.12 MIL/MM3 (4.00-5.30); RED CELL DISTRIBUTION WIDTH 13.9 % (11.6-17.2); WHITE BLOOD COUNT 8.1 TH/MM3 (4.0-11.0)
[2017-03-21 01:30] VITALS: BP 136/93; PULSE 45; RESP 16; O2SAT 99
[2017-03-21 01:41] LABS: ALKALINE PHOSPHATASE 99 U/L (45-117); TOTAL BILIRUBIN ADULT 0.2 MG/DL (0.2-1.0)
[2017-03-21 01:43] LABS: ALT (GPT) 24 U/L (10-53); ANION GAP 6 MEQ/L (5-15); AST (GOT) 18 U/L (15-37); BICARBONATE 25.9 MEQ/L (21.0-32.0); BLOOD UREA NITROGEN 24 MG/DL (7-18); CHLORIDE 110 MEQ/L (98-107); GLOMERULAR FILTRATION RATE 53 ML/MIN (>89); POTASSIUM 4.2 MEQ/L (3.5-5.1); SODIUM (NA) 142 MEQ/L (136-145)
[2017-03-21 05:06] LABS: BACTERIA, URINE RARE /hpf; BLOOD, URINE NEG (NEG); COMMENT (UR) CULT NOT INDICATED; CULTURE IF INDICATED CULT NOT INDICATED; GLUCOSE,URINE NEG (NEG); HYALINE CAST, URINE 1 /lpf (RARE); KETONE, URINE NEG (NEG); MUCUS URINE FEW /lpf (OCC); NITRITE,URINE NEG (NEG); SQUAMOUS EPITHELIAL CELL URINE 3 /hpf (0-5); URINE COLOR YELLOW (YELLW/STRAW)
[2017-03-21 05:30] VITALS: BP 163/85; PULSE 57; RESP 16; O2SAT 99
[2017-04-12] MEDS ORDERED: CARV25TA PO (10:07)
[2017-04-12] MEDS ORDERED: NOVOLOGP2 SQ (10:07)
[2017-04-16] MEDS ORDERED: WHEEMIS3 ×2 (15:05→15:06)
[2017-04-16] MEDS ORDERED: ZANT300T PO (15:48)
== END 2017-03-21 07:47 | disposition home or self-care (01) ==
LOC: NEPC 22:34
DX: E16.2 Hypoglycemia, unspecified (principal); I10 Essential (primary) hypertension; I50.9 Heart failure, unspecified; E11.9 Type 2 diabetes mellitus without complications
CPT/HCPCS: 80053; 81001; 85025; 99283

== ENCOUNTER 2017-03-28 10:17 | Emergency (ER) | payer MEDICARE ==
[~2017-03-28] VITALS: Ht 167.6 cm; Wt 95.0 kg
[2017-03-28 10:21] VITALS: BP 186/87; PULSE 51; RESP 16; TEMP 97; O2SAT 100
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
[2017-03-28 11:04] VITALS: BP 155/75; PULSE 48; RESP 18; O2SAT 98
[2017-03-28 11:06] LABS: AUTOMATED NEUTROPHIL # 4.3 TH/MM3 (1.8-7.7); BASOPHIL % 0.6 % (0.0-2.0); EOSINOPHIL # 0.2 TH/MM3 (0-0.4); EOSINOPHIL % 2.5 % (0.0-4.0); HEMATOCRIT 36.1 % (35.0-46.0); HEMO FLAGS DIFF FINAL; LYMPH % 36.2 % (9.0-44.0); MEAN CELL VOLUME 85.7 FL (80.0-100.0); MEAN CORPUSCULAR HEMOGLOBIN 28.8 PG (27.0-34.0); MEAN CORPUSCULAR HGB CONC 33.6 % (32.0-36.0); MONO % 8.8 % (0.0-8.0); NEUT % 51.9 % (16.0-70.0); PLATELET COUNT 222 TH/MM3 (150-450); RED BLOOD COUNT 4.21 MIL/MM3 (4.00-5.30); RED CELL DISTRIBUTION WIDTH 14.3 % (11.6-17.2); WHITE BLOOD COUNT 8.2 TH/MM3 (4.0-11.0)
[2017-03-28] MEDS ORDERED: DEXTROSE 50% IN WATER 50 ML SYRINGE IV PUSH ONE ×2 (11:15→13:30)
[2017-03-28 11:16] LABS: APTT (PATIENT) 23.3 SEC (24.3-30.1); PROTHROMBIN TIME - PATIENT 10.6 SEC (9.8-11.6)
--- NOTE | 2017-03-28 11:20 | RADRPT ---
EXAM DATE/TIME: 03/28/2017 10:51 [facility] COMPARISON: CHEST SINGLE AP, March 05, 2017, 14:55. INDICATIONS : Shortness of breath. MEDICAL HISTORY : Stroke. CVA, Seizures, HTN, CHF, CKD, Osteoarthritis SURGICAL HISTORY : None. ENCOUNTER: Initial ACUITY: 1 day PAIN SCORE: 0/10 LOCATION: Bilateral chest FINDINGS: A single view of the chest demonstrates the lungs to be symmetrically aerated without evidence of mas s, infiltrate or effusion. The cardiomediastinal contours are unremarkable. Osseous structures are intact. CONCLUSION: 1. No acute cardiopulmonary findings. Deven Whitehead MD on March 28, 2017 at 11:18 Board Certified Radiologist. This report was verified electronically.
[2017-03-28 11:39] LABS: ALKALINE PHOSPHATASE 93 U/L (45-117); ALT (GPT) 40 U/L (10-53); CREATINE KINASE 109 U/L (26-192); TOTAL BILIRUBIN ADULT 0.1 MG/DL (0.2-1.0)
[2017-03-28 11:40] LABS: ANION GAP 8 MEQ/L (5-15); AST (GOT) 37 U/L (15-37); BICARBONATE 22.5 MEQ/L (21.0-32.0); BLOOD UREA NITROGEN 21 MG/DL (7-18); CHLORIDE 110 MEQ/L (98-107); GLOMERULAR FILTRATION RATE 74 ML/MIN (>89); SODIUM (NA) 140 MEQ/L (136-145)
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
[2017-03-28 11:52] LABS: CKMB 1.4 NG/ML (0.5-3.6)
[2017-03-28 11:53] LABS: ACETAMINOPHEN LESS THAN 2.0 MCG/ML (10.0-30.0); ALCOHOL LESS THAN 3 MG/DL (0-5)
[2017-03-28 12:31] LABS: BACTERIA, URINE OCC /hpf; BLOOD, URINE NEG (NEG); COMMENT (UR) CATH-CULTURE IND; CULTURE IF INDICATED CATH CULTURE IND; GLUCOSE,URINE NEG (NEG); KETONE, URINE NEG (NEG); MUCUS URINE FEW /lpf (OCC); NITRITE,URINE NEG (NEG); SQUAMOUS EPITHELIAL CELL URINE 1 /hpf (0-5); URINE COLOR LIGHT-YELLOW (YELLW/STRAW)
[2017-03-28] MEDS ORDERED: cefTRIAXone INJ 1,000 MG in SODIUM CHLORIDE 0.9% INJ 100 ML IV ONE (13:30)
[2017-03-28 18:49] VITALS: BP 151/85
--- NOTE | 2017-03-29 19:44 | EKG ---
Date Performed: 03/28/2017 Time Performed: 10:55:41 PTAGE: 61 years EKG: SINUS BRADYCARDIA LOW QRS VOLTAGE IN PRECORDIAL LEADS BORDERLINE ECG PREVIOUS TRACING : 03/05/2017 16.12 Compared to prior tracing no significant change DOCTOR: Patrick Gabriel Interpretating Date/Time 03/29/2017 19:39:11
[2017-04-12] MEDS ORDERED: NOVOLOGP2 SQ (10:07)
[2017-04-12] MEDS ORDERED: CARV25TA PO (10:07)
[2017-04-16] MEDS ORDERED: WHEEMIS3 ×2 (15:05→15:06)
[2017-04-16] MEDS ORDERED: ZANT300T PO (15:48)
== END 2017-03-28 19:12 | disposition home or self-care (01) ==
LOC: NEPE 10:17
DX: E11.649 Type 2 diabetes mellitus with hypoglycemia without coma (principal); N39.0 Urinary tract infection, site not specified; B95.2 Enterococcus as the cause of diseases classified elsewhere; I11.0 Hypertensive heart disease with heart failure; I50.9 Heart failure, unspecified; Z79.4 Long term (current) use of insulin; Z79.899 Other long term (current) drug therapy
CPT/HCPCS: 70450; 71010; 80053; 80307; 81001; 82550; 82552; 83690; 83880; 84443; 84484; 85025; 85610; 85730; 87077; 87086; 87186; 93005; 96374; 96375; 96376; 99285; J0696

== ENCOUNTER 2017-08-18 14:45 | Emergency (ER) | payer MEDICARE, MEDICAID ==
[~2017-08-18] VITALS: Ht 167.6 cm; Wt 86.4 kg
[~2017-08-18 14:45] MED LIST changes: -BACT800T5 PO; +BLOOD GLUCOSE M1 KIT SQ; +BLOOD GLUCOSE T1 TES SQ; -CARV25TA PO; -EPIN1INJ21 IV PUSH; +FINGMIS SQ; +HYDR12.57 PO; +INSU-99 SQ; +INSU0.5M12 SQ; +MIRA3350 PO; +WHEEMIS3
[2017-08-18 14:52] VITALS: BP 146/77; PULSE 62; RESP 16; TEMP 97.8; O2SAT 98
--- NOTE | 2017-08-18 16:26 | RADRPT ---
EXAM DATE/TIME: 08/18/2017 15:33 [facility] COMPARISON: No previous studies available for comparison. INDICATIONS : Right leg swelling. MEDICAL HISTORY : Gastroesophageal reflux disease. Hypertension. . Cerebrovascular accident. Seizures. Head trauma. Congestive heart failure. Anticoagulant therapy. Chronic kidney disease. Arthritis. Osteopor osis. Diabetes. MDRO. SURGICAL HISTORY : Tubal ligation. section. PEG tube with removal. ENCOUNTER: Initial ACUITY: 1 day PAIN SCORE: 0/10 LOCATION: Right leg. TECHNIQUE: Venous ultrasound of the leg was performed from the inguinal ligament to the proximal calf. Real-senthil e, color Doppler and spectral tracing, compression and augmentation techniques were used. FINDINGS: There is normal compressibility of the deep venous system from the inguinal region to the proximal ca lf. No echogenic clot is seen in the lumen of the common femoral, femoral, popliteal, and posterior tibial veins. There is a normal response of the venous system to proximal and distal augmentation an d respiration. CONCLUSION: Normal examination. Raúl Eden MD on August 18, 2017 at 16:22 Board Certified Radiologist. This report was verified electronically.
[2017-08-18 17:04] VITALS: BP 144/83; PULSE 57; RESP 18; O2SAT 100
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
--- NOTE | 2017-08-18 17:35 | RADRPT ---
EXAM DATE/TIME: 08/18/2017 17:15 [facility] COMPARISON: CHEST SINGLE AP, March 28, 2017, 10:51. INDICATIONS : Short of breath, leg swelling. MEDICAL HISTORY : None. SURGICAL HISTORY : None. ENCOUNTER: Initial ACUITY: 3 days PAIN SCORE: 0/10 LOCATION: Bilateral chest FINDINGS: A single view of the chest demonstrates the lungs to be symmetrically aerated without evidence of mas s, infiltrate or effusion. The cardiomediastinal contours are unremarkable. Osseous structures are intact. CONCLUSION: No acute disease. Raúl Eden MD on August 18, 2017 at 17:32 Board Certified Radiologist. This report was verified electronically.
[2017-08-18 19:04] VITALS: BP 150/66; PULSE 56; RESP 17; O2SAT 100
[2017-08-18 19:06] LABS: INTERNATIONAL NORMALIZED RATIO 1.1 RATIO; PROTHROMBIN TIME - PATIENT 11.2 SEC (9.8-11.6)
[2017-08-18 19:14] LABS: ALBUMIN 3.5 GM/DL (3.4-5.0); AST (GOT) 17 U/L (15-37); BICARBONATE 26.8 MEQ/L (21.0-32.0); BLOOD UREA NITROGEN 15 MG/DL (7-18); CALCIUM 8.8 MG/DL (8.5-10.1); CHLORIDE 109 MEQ/L (98-107); CREATININE 1.05 MG/DL (0.50-1.00); GLOMERULAR FILTRATION RATE 64 ML/MIN (>89); GLUCOSE,RANDOM 101 MG/DL (74-106); SODIUM (NA) 142 MEQ/L (136-145)
[2017-08-18 19:15] LABS: ALT (GPT) 15 U/L (10-53)
[2017-08-18 19:17] LABS: ALKALINE PHOSPHATASE 101 U/L (45-117); TOTAL BILIRUBIN ADULT 0.2 MG/DL (0.2-1.0); TOTAL PROTEIN 7.8 GM/DL (6.4-8.2)
[2017-08-18 19:22] LABS: BASOPHIL # 0.1 TH/MM3 (0-0.2); EOSINOPHIL # 0.6 TH/MM3 (0-0.4); EOSINOPHIL % 6.3 % (0.0-4.0); HEMATOCRIT 36.3 % (35.0-46.0); HEMOGLOBIN 12.1 GM/DL (11.6-15.3); LYMPH % 44.3 % (9.0-44.0); LYMPHOCYTE # 4.1 TH/MM3 (1.0-4.8); MEAN CELL VOLUME 84.8 FL (80.0-100.0); MEAN CORPUSCULAR HEMOGLOBIN 28.3 PG (27.0-34.0); MEAN CORPUSCULAR HGB CONC 33.4 % (32.0-36.0); MONO % 5.4 % (0.0-8.0); MONOCYTE # 0.5 TH/MM3 (0-0.9); PLATELET COUNT 255 TH/MM3 (150-450); RED BLOOD COUNT 4.28 MIL/MM3 (4.00-5.30); RED CELL DISTRIBUTION WIDTH 13.7 % (11.6-17.2); WHITE BLOOD COUNT 9.3 TH/MM3 (4.0-11.0)
== END 2017-08-18 21:53 | disposition home or self-care (01) ==
LOC: NEPD 14:45
DX: R60.0 Localized edema (principal); I13.0 Hypertensive heart and chronic kidney disease with heart failure and stage 1 through stage 4 chronic kidney disease, or unspecified chronic kidney disease; Z79.01 Long term (current) use of anticoagulants; Z79.4 Long term (current) use of insulin
CPT/HCPCS: 71045; 80053; 83880; 85025; 85610; 85730; 93971; 99285

== ENCOUNTER 2017-10-01 11:20 | Emergency (ER) | payer MEDICARE, MEDICAID ==
[~2017-10-01] VITALS: Ht 167.6 cm; Wt 86.4 kg
[2017-10-01 11:30] VITALS: BP 168/72; PULSE 64; RESP 16; TEMP 97.6; O2SAT 100
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
[2017-10-01 12:58] LABS: CALCIUM 8.7 MG/DL (8.5-10.1); CREATININE 1.17 MG/DL (0.50-1.00)
[2017-10-01 13:05] VITALS: BP 152/77
== END 2017-10-01 13:28 | disposition home or self-care (01) ==
LOC: NEPD 11:20
DX: R60.0 Localized edema (principal); N28.9 Disorder of kidney and ureter, unspecified; I10 Essential (primary) hypertension; E11.9 Type 2 diabetes mellitus without complications; Z86.73 Personal history of transient ischemic attack (TIA), and cerebral infarction without residual deficits; Z86.69 Personal history of other diseases of the nervous system and sense organs; Z79.899 Other long term (current) drug therapy
CPT/HCPCS: 80048; 99283

== ENCOUNTER 2017-11-17 16:22 | Emergency (ER) | payer MEDICARE, MEDICAID ==
[~2017-11-17 16:22] MED LIST changes: -INSU-99 SQ; -INSU0.5M12 SQ; -MIRA3350 PO; -NOVOLOGP2 SQ; -WHEEMIS3
[2017-11-17 16:31] VITALS: BP 145/97; PULSE 60; RESP 18; TEMP 97.6; O2SAT 99
[2017-11-17 17:02] VITALS: O2SAT 98
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
--- NOTE | 2017-11-17 17:37 | RADRPT ---
EXAM DATE: 11/17/2017 5:33 PM EDT AGE/SEX: 62 years / Female INDICATIONS: Short of breath and bilateral lower extremity swelling. CLINICAL DATA: This is the patient's initial encounter. Patient reports that signs and symptoms have been present for 1 day and indicates a pain score of 0/10. MEDICAL/SURGICAL HISTORY: None. None. COMPARISON: [facility] [place], CHEST SINGLE AP, 08/18/2017. . FINDINGS: A single AP view of the chest demonstrates the lungs to be symmetrically aerated without evidence of mass, infiltrate or effusion. The cardiomediastinal contours are unremarkable. Osseous structures a re intact. CONCLUSION: No acute intrathoracic disease. Stable exam. Electronically signed by: Liban Art MD 11/17/2017 5:35 PM EDT
[2017-11-17 18:04] LABS: BASOPHIL # 0.1 TH/MM3 (0-0.2); BASOPHIL % 0.9 % (0.0-2.0); EOSINOPHIL # 0.6 TH/MM3 (0-0.4); HEMATOCRIT 34.6 % (35.0-46.0); HEMOGLOBIN 11.3 GM/DL (11.6-15.3); LYMPH % 36.5 % (9.0-44.0); LYMPHOCYTE # 2.4 TH/MM3 (1.0-4.8); MEAN CELL VOLUME 85.8 FL (80.0-100.0); MEAN CORPUSCULAR HEMOGLOBIN 28.1 PG (27.0-34.0); MEAN CORPUSCULAR HGB CONC 32.7 % (32.0-36.0); MEAN PLATELET VOLUME 8.9 FL (7.0-11.0); MONO % 7.6 % (0.0-8.0); MONOCYTE # 0.5 TH/MM3 (0-0.9); PLATELET COUNT 218 TH/MM3 (150-450); RED BLOOD COUNT 4.04 MIL/MM3 (4.00-5.30); WHITE BLOOD COUNT 6.5 TH/MM3 (4.0-11.0)
[2017-11-17 18:13] LABS: INTERNATIONAL NORMALIZED RATIO 1.1 RATIO; PROTHROMBIN TIME - PATIENT 11.4 SEC (9.8-11.6)
[2017-11-17 18:29] LABS: ALBUMIN 3.3 GM/DL (3.4-5.0); ALT (GPT) 16 U/L (10-53); AST (GOT) 19 U/L (15-37); BICARBONATE 25.7 MEQ/L (21.0-32.0); BLOOD UREA NITROGEN 17 MG/DL (7-18); CALCIUM 8.7 MG/DL (8.5-10.1); CHLORIDE 109 MEQ/L (98-107); CREATININE 1.08 MG/DL (0.50-1.00); GLOMERULAR FILTRATION RATE 62 ML/MIN (>89); GLUCOSE,RANDOM 111 MG/DL (74-106); SODIUM (NA) 142 MEQ/L (136-145)
[2017-11-17 18:30] LABS: ALKALINE PHOSPHATASE 110 U/L (45-117); TOTAL BILIRUBIN ADULT 0.3 MG/DL (0.2-1.0); TOTAL PROTEIN 8.2 GM/DL (6.4-8.2)
[2017-11-17 19:10] LABS: BACTERIA, URINE OCC /hpf; BILIRUBIN, URINE NEG (NEG); BLOOD, URINE NEG (NEG); GLUCOSE,URINE NEG (NEG); KETONE, URINE NEG (NEG); NITRITE,URINE NEG (NEG); SQUAMOUS EPITHELIAL CELL URINE 1 /hpf (0-5); URINE COLOR YELLOW (YELLW/STRAW); URINE LEUKOCYTE ESTERASE LARGE (NEG)
[2017-11-17] MEDS ORDERED: BACT800T5 PO (19:35)
[2017-11-17 21:25] VITALS: BP 143/74
--- NOTE | 2017-11-19 08:22 | EKG ---
Date Performed: 11/17/2017 Time Performed: 17:27:23 PTAGE: 62 years EKG: SINUS BRADYCARDIA LOW QRS VOLTAGE IN PRECORDIAL LEADS POSSIBLE ANTERIOR MYOCARDIAL INFARCTI ON BORDERLINE ECG PREVIOUS TRACING : 03/28/2017 10.55 DOCTOR: Rishabh Alvarez Interpretating Date/Time 11/19/2017 08:16:14
== END 2017-11-17 22:36 | disposition home or self-care (01) ==
LOC: NEPC 16:22
DX: N30.00 Acute cystitis without hematuria (principal); E11.9 Type 2 diabetes mellitus without complications; I11.0 Hypertensive heart disease with heart failure; I50.9 Heart failure, unspecified
CPT/HCPCS: 71045; 80053; 81001; 83880; 84443; 85025; 85610; 85730; 87086; 93005; 99285